=== PATIENT | female | born 1990 ===

== ENCOUNTER 2017-02-17 06:58 | Observation (INO) | payer OTHER, SELFPAY ==
[2017-02-17 07:37] VITALS: BMI 27.4
[2017-02-17 07:41] VITALS: RESP 20; O2SAT 98
[2017-02-17] MEDS ORDERED: Iohexol 240 (50 ml) PO ONE (08:06)
[2017-02-17] MEDS ORDERED: Sodium Chloride 0.9% 1,000 ML IV STA (08:07)
--- NOTE | 2017-02-17 08:09 | ED PDOC ---
HPI: Abdomen Time Seen by Provider: 02/17/17 07:00 Chief Complaint (Nursing): Abdominal Pain Chief Complaint (Provider): Abdominal Pain History Per: Patient History/Exam Limitations: no limitations Onset/Duration Of Symptoms: Days Current Symptoms Are (Timing): Still Present Severity: Moderate Location Of Pain/Discomfort: Periumbilical Quality Of Discomfort: "Pain" Associated Symptoms: Nausea, Back Pain. denies: Fever, Vomiting, Diarrhea, Urinary Symptoms Exacerbating Factors: None Alleviating Factors: None Additional Complaint(s): Patient is a 26 year old female who presents to ED for evaluation of abdominal pain and back pain that began 3 days ago. Patient states pain was initially mild , felt a little better yesterday but worsened significantly last night, making it difficult to sleep. Patient states pain is lower abdomen with nausea. Denies vomiting, diarrhea, urinary changes, fever or chills. Notes she thought she may be but had a normal menstrual cycle last week with 2 negative home test. Past Medical History Reviewed: Historical Data, Nursing Documentation, Vital Signs Vital Signs: Last Vital Signs Temp 98.7 F 02/17/17 13:32 Pulse 78 02/17/17 13:32 Resp 20 02/17/17 13:32 BP 128/70 02/17/17 13:32 Pulse Ox 98 02/17/17 13:32 - Medical History PMH: No Chronic Diseases - Surgical History Surgical History: No Surg Hx - Family History Family History: States: No Known Family Hx - Social History Current smoker - smoking cessation education provided: Yes (occasionally ) Alcohol: None Drugs: Denies - Allergies Allergies/Adverse Reactions: Allergies Allergy/AdvReac Type Severity Reaction Status Date / Time No Known Allergies Allergy Verified 02/17/17 07:36 Review of Systems ROS Statement: Except As Marked, All Systems Reviewed And Found Negative Constitutional: Negative for: Fever, Chills Gastrointestinal: Positive for: Nausea, Abdominal Pain. Negative for: Vomiting , Diarrhea Genitourinary Female: Negative for: Dysuria, Frequency, Hematuria, Vaginal Discharge, Vaginal Bleeding, Pelvic Pain Musculoskeletal: Positive for: Back Pain Skin: Negative for: Rash Neurological: Negative for: Weakness, Numbness Physical Exam - Reviewed Nursing Documentation Reviewed: Yes Vital Signs Reviewed: Yes - Physical Exam Appears: Positive for: Non-toxic, No Acute Distress Skin: Positive for: Normal Color, Warm Eye Exam: Positive for: Normal appearance Neck: Positive for: Normal, Painless ROM Cardiovascular/Chest: Positive for: Regular Rate, Rhythm. Negative for: Murmur Respiratory: Positive for: Normal Breath Sounds. Negative for: Respiratory Distress Gastrointestinal/Abdominal: Positive for: Soft, Tenderness (mild periumbilical tenderness ). Negative for: Distended, Guarding, Rebound Back: Positive for: Normal Inspection, L CVA Tenderness, R CVA Tenderness. Negative for: Vertebral Tenderness Extremity: Positive for: Normal ROM Neurologic/Psych: Positive for: Alert, Oriented - Laboratory Results Result Diagrams: 02/17/17 08:56 02/17/17 08:56 - ECG O2 Sat by Pulse Oximetry: 98 (RA) Pulse Ox Interpretation: Normal Medical Decision Making Medical Decision Making: Time: 0800 Initial impression: Abdominal pain, determine status. R/O kidney stone , ovarian pathology less likely appendicitis Initial plan: -- CT-abdomen -- CMP -- Lipase -- CBC -- NSF, Morphine -- Urine culture -- U/A -- ED obs Time: 1230 CT results reviewed PROCEDURE: CT Abdomen and Pelvis with contrast HISTORY: Abdominal pain. COMPARISON: 03/09/2012 CT abdomen and pelvis TECHNIQUE: Contrast dose: 95 cc Omnipaque 300 Radiation dose: Total exam DLP = 934.82 no mGy-cm. This CT exam was performed using one or more of the following dose reduction techniques: Automated exposure control, adjustment of the mA and/or kV according to patient size, and/or use of iterative reconstruction technique. FINDINGS: LOWER THORAX: Unremarkable. LIVER: Unremarkable. No gross lesion or ductal dilatation. GALLBLADDER AND BILE DUCTS: Unremarkable. PANCREAS: Unremarkable. No gross lesion or ductal dilatation. SPLEEN: Unremarkable. ADRENALS: Unremarkable. No mass. KIDNEYS AND URETERS: Unremarkable. No hydronephrosis. No solid mass. VASCULATURE: Unremarkable. No aortic aneurysm. BOWEL: Unremarkable. No obstruction. No gross mural thickening. APPENDIX: Normal appendix. PERITONEUM: Unremarkable. No free fluid. No free air. LYMPH NODES: Unremarkable. No enlarged lymph nodes. BLADDER: Unremarkable. REPRODUCTIVE: Contrast-enhanced characteristics right adnexa likely reflect recent ruptured ovarian cyst. Adjacent free fluid noted in the cul-de-sac. Probable left adnexal cysts/ follicles physiologic. BONES: No acute fracture. OTHER FINDINGS: None. IMPRESSION: Findings in the pelvis consistent with recent ruptured right ovarian cyst. Associated free fluid in the cul-de-sac. Otherwise no acute/significant findings. Time: 1300 Patient on re-evaluation is feeling better. pt aware of CT results and pain completely resolved. Discussed results with patient, instructed follow up with SIMULATION EDUCATOR as outpatient Scribe Attestation: Documented by Hillary Jj acting as a scribe for Rafael Martinez MD MD Scribe Attestation: All medical record entries made by the Scribe were at my direction and personally dictated by me. I have reviewed the chart and agree that the record accurately reflects my personal performance of the history, physical exam, medical decision making, and the department course for this patient. I have also personally directed, reviewed, and agree with the discharge instructions and disposition. ED OBSERVATION Date of observation admission: 02/17/17 Time of observation admission: 08:05 - Observation admission statement Patient is being placed in observation because:: Pending CT and labs Disposition - Clinical Impression Clinical Impression: Abdominal pain, Ruptured ovarian cyst - Patient ED Disposition Is Patient to be Admitted: No Counseled Patient/Family Regarding: Studies Performed, Diagnosis, Need For Followup - Disposition Disposition: Routine/Home Disposition Time: 13:00 Condition: GOOD
[2017-02-17] MEDS ORDERED: Iohexol 240 (50 ml) ONE (08:16)
[2017-02-17 09:03] LABS: BASO % 0.3 % (0.0-2.0); EOS # 0.1 K/uL (0.0-0.7); EOS % 0.8 % (0.0-4.0); HEMATOCRIT 38.7 % (34.0-47.0); MEAN CELL VOLUME 88.8 fl (81.0-99.0); MEAN CORPUSCULAR HGB CONC 33.7 g/dL (33.0-37.0); MEAN PLATELET VOLUME 7.8 fl (7.2-11.7); MONO # 0.6 K/uL (0.0-0.8); MONO % 5.5 % (0.0-10.0); NEUT # 7.8 K/uL (1.8-7.0); NEUT % 74.4 % (50.0-75.0); NRBC % 0.1 % (0.0-0.0); RED CELL DISTRIBUTION WIDTH 13.2 % (11.5-14.5); WHITE BLOOD COUNT 10.5 K/uL (4.8-10.8)
[2017-02-17 09:19] LABS: ALB/GLOB RATIO 1.2 (1.0-2.1); ALKALINE PHOSPHATASE 83 U/L (38-126); ALT/SGPT 35 U/L (9-52); AST/SGOT 22 U/L (14-36); BILIRUBIN,TOTAL 0.4 mg/dl (0.2-1.3); BLOOD UREA NITROGEN 14 mg/dl (7-17); CALCIUM 9.4 mg/dL (8.4-10.2); CARBON DIOXIDE 23 mmol/L (22-30); CHLORIDE 105 mmol/L (98-107); GFR AFRICAN-AMERICAN > 60; GLUCOSE,RANDOM 98 mg/dL (65-105); LIPASE 23 U/L (23-300); SODIUM 142 mmol/l (132-148); TOTAL PROTEIN 7.6 G/DL (6.3-8.2)
[2017-02-17 09:23] LABS: RBC URINE 1 /hpf (0-3); URINE BACTERIA RARE (<OCC); URINE BILIRUBIN NEGATIVE (NEGATIVE); URINE BLOOD NEGATIVE (NEGATIVE); URINE COLOR YELLOW (YELLOW); URINE GLUCOSE (UA) NEG (Normal); URINE KETONE NEGATIVE (NEGATIVE); URINE LEUKOCYTE ESTERASE TRACE Leu/uL (Negative); URINE PROTEIN 30 mg/dL (NEGATIVE); URINE UROBILINOGEN 0.2-1.0 mg/dL (0.2-1.0); WBC URINE 4 /hpf (0-5)
[2017-02-17] MEDS ORDERED: Iohexol 300 100 ML IJ ONE (11:31)
[2017-02-17] MEDS ORDERED: Sodium Chloride 0.9% 50 ML IV ONE (11:31)
--- NOTE | 2017-02-17 12:27 | CT ---
PROCEDURE: CT Abdomen and Pelvis with contrast HISTORY: Abdominal pain. COMPARISON: 03/09/2012 CT abdomen and pelvis TECHNIQUE: Contrast dose: 95 cc Omnipaque 300 Radiation dose: Total exam DLP = 934.82 no mGy-cm. This CT exam was performed using one or more of the following dose reduction techniques: Automated exposure control, adjustment of the mA and/or kV according to patient size, and/or use of iterative reconstruction technique. FINDINGS: LOWER THORAX: Unremarkable. LIVER: Unremarkable. No gross lesion or ductal dilatation. GALLBLADDER AND BILE DUCTS: Unremarkable. PANCREAS: Unremarkable. No gross lesion or ductal dilatation. SPLEEN: Unremarkable. ADRENALS: Unremarkable. No mass. KIDNEYS AND URETERS: Unremarkable. No hydronephrosis. No solid mass. VASCULATURE: Unremarkable. No aortic aneurysm. BOWEL: Unremarkable. No obstruction. No gross mural thickening. APPENDIX: Normal appendix. PERITONEUM: Unremarkable. No free fluid. No free air. LYMPH NODES: Unremarkable. No enlarged lymph nodes. BLADDER: Unremarkable. REPRODUCTIVE: Contrast-enhanced characteristics right adnexa likely reflect recent ruptured ovarian cyst. Adjacent free fluid noted in the cul-de-sac. Probable left adnexal cysts/ follicles physiologic. BONES: No acute fracture. OTHER FINDINGS: None. IMPRESSION: Findings in the pelvis consistent with recent ruptured right ovarian cyst. Associated free fluid in the cul-de-sac. Otherwise no acute/significant findings.
[2017-02-17 13:33] VITALS: BP 128/70; PULSE 78; TEMP 98.7
== END 2017-02-17 13:06 | disposition home or self-care (01) ==
LOC: H.ER 06:58 → H.EROBSV 08:06
PROVIDERS: ADMIT Emergency Medicine; ATTEND Emergency Medicine
DX: N83.201 Unspecified ovarian cyst, right side (principal); F17.200 Nicotine dependence, unspecified, uncomplicated

== ENCOUNTER 2017-08-11 07:21 | Emergency (ER) | payer OTHER ==
[2017-08-11 07:22] VITALS: BMI 27.4
[2017-08-11 07:28] VITALS: O2SAT 98
[2017-08-11 07:37] VITALS: RESP 20
[2017-08-11] MEDS ORDERED: Sodium Chloride 0.9% 1,000 ML IV STA (08:02)
--- NOTE | 2017-08-11 08:07 | ED PDOC ---
HPI: Headache Time Seen by Provider: 08/11/17 07:43 Chief Complaint (Nursing): Abdominal Pain Chief Complaint (Provider): headache History Per: Patient History/Exam Limitations: no limitations Onset/Duration Of Symptoms: Days (x 7) Additional Complaint(s): Lisa Sandoval is a 27 year old female, with a previous medical history of a ruptured ovarian cyst, who presents to the ED with complaints of a left sided headache ongoing for 1 week associated with nausea, dizziness and mild epigastric pain. She denies any vomiting, photophobia, fever or neck stiffness. She reports seeing her doctor for the abdominal pain who prescribed a pill twice a day before breakfast and dinner but denies seeing her doctor for the recurring headaches. Patient reports headache is consistent with previous headaches and is not the worst of her life rating it a 6/10. She reports taking Motrin twice last week and taking Tylenol last night with moderate relief. LMP: July 16, 2017 Past Medical History Reviewed: Historical Data, Nursing Documentation, Vital Signs Vital Signs: Last Vital Signs Temp 97.5 F L 08/11/17 07:34 Pulse 74 08/11/17 07:34 Resp 20 08/11/17 07:34 BP 105/65 08/11/17 07:34 Pulse Ox 98 08/11/17 07:34 - Medical History PMH: No Chronic Diseases - Surgical History Surgical History: No Surg Hx - Family History Family History: States: Diabetes (maternal ) - Social History Current smoker - smoking cessation education provided: No Alcohol: None Drugs: Denies - Home Medications Home Medications: Ambulatory Orders Medication Instructions Recorded Naproxen [Naprosyn] 500 mg PO BID PRN #20 tablet 08/11/17 Ondansetron [Zofran] 4 mg PO Q8H #9 tab 08/11/17 - Allergies Allergies/Adverse Reactions: Allergies Allergy/AdvReac Type Severity Reaction Status Date / Time No Known Allergies Allergy Verified 08/11/17 07:34 Review of Systems ROS Statement: Except As Marked, All Systems Reviewed And Found Negative Constitutional: Negative for: Fever Gastrointestinal: Positive for: Nausea, Abdominal Pain. Negative for: Vomiting Neurological: Positive for: Headache, Dizziness Physical Exam - Reviewed Nursing Documentation Reviewed: Yes Vital Signs Reviewed: Yes - Physical Exam Appears: Positive for: Well, Non-toxic, No Acute Distress Head Exam: Positive for: ATRAUMATIC, NORMAL INSPECTION, NORMOCEPHALIC Skin: Positive for: Normal Color, Warm, Dry Eye Exam: Positive for: Normal appearance, EOMI, PERRL. Negative for: Nystagmus ENT: Positive for: Normal ENT Inspection Neck: Positive for: Normal, Painless ROM Cardiovascular/Chest: Positive for: Regular Rate, Rhythm Respiratory: Positive for: CNT, Normal Breath Sounds Gastrointestinal/Abdominal: Positive for: Bowel Sounds, Soft, Tenderness (mild epigastric tenderness and RLQ). Negative for: Guarding, Rebound Back: Positive for: Normal Inspection Extremity: Positive for: Normal ROM Neurologic/Psych: Positive for: Alert, sales host II-XII (intact), Oriented. Negative for: Motor/Sensory Deficits - Laboratory Results Result Diagrams: 08/11/17 08:10 08/11/17 08:10 - ECG O2 Sat by Pulse Oximetry: 98 (RA) Pulse Ox Interpretation: Normal Medical Decision Making Medical Decision Making: Initial Impression: Migraine headaches Initial Plan: * labs * lipase * urine dipstick * urine * pepcid 20 mg IV * zofran 4 mg IV * urinalysis * IV NS 1,000 ml at 1,000 ml/hr * reevaluation ----- Scribe Attestation: Documented by Jenny Castro acting as a scribe for Robyn Mccarthy MD. Scribe Attestation: All medical record entries made by the Scribe were at my direction and personally dictated by me. I have reviewed the chart and agree that the record accurately reflects my personal performance of the history, physical exam, medical decision making, and the department course for this patient. I have also personally directed, reviewed, and agree with the discharge instructions and disposition. Disposition - Clinical Impression Clinical Impression: Migraine - Patient ED Disposition Is Patient to be Admitted: No Doctor Will See Patient In The: Office Counseled Patient/Family Regarding: Diagnosis, Need For Followup, Rx Given - Disposition Disposition: Routine/Home Disposition Time: 10:44 Condition: IMPROVED Prescriptions: Naproxen [Naprosyn] 500 mg PO BID PRN #20 tablet PRN Reason: Pain, Moderate (4-7) Ondansetron [Zofran] 4 mg PO Q8H #9 tab Forms: [email or web address] (Lao) - POA Present On Arrival: None
[2017-08-11 08:20] LABS: BASO % 0.6 % (0.0-2.0); EOS # 0.2 K/uL (0.0-0.7); EOS % 2.7 % (0.0-4.0); HEMATOCRIT 36.4 % (34.0-47.0); LYMPH # 2.6 K/uL (1.0-4.3); LYMPH % 34.8 % (20.0-40.0); MEAN CELL VOLUME 89.7 fl (81.0-99.0); MEAN CORPUSCULAR HEMOGLOBIN 30.3 pg (27.0-31.0); MEAN CORPUSCULAR HGB CONC 33.8 g/dL (33.0-37.0); MEAN PLATELET VOLUME 7.8 fl (7.2-11.7); MONO # 0.6 K/uL (0.0-0.8); MONO % 8.2 % (0.0-10.0); NEUT % 53.7 % (50.0-75.0); RED CELL DISTRIBUTION WIDTH 13.2 % (11.5-14.5); WHITE BLOOD COUNT 7.5 K/uL (4.8-10.8)
[2017-08-11 08:31] LABS: RBC URINE 1 /hpf (0-3); URINE BACTERIA RARE (<OCC); URINE BILIRUBIN NEGATIVE (NEGATIVE); URINE BLOOD NEGATIVE (NEGATIVE); URINE COLOR YELLOW (YELLOW); URINE GLUCOSE (UA) NEG (Normal); URINE KETONE NEGATIVE (NEGATIVE); URINE LEUKOCYTE ESTERASE SMALL Leu/uL (Negative); URINE PROTEIN NEGATIVE (NEGATIVE); URINE UROBILINOGEN 0.2-1.0 mg/dL (0.2-1.0); WBC URINE 13 /hpf (0-5)
[2017-08-11 08:51] LABS: ALB/GLOB RATIO 1.3 (1.0-2.1); ALKALINE PHOSPHATASE 71 U/L (38-126); ALT/SGPT 28 U/L (9-52); AST/SGOT 20 U/L (14-36); BILIRUBIN,TOTAL 0.4 mg/dl (0.2-1.3); BLOOD UREA NITROGEN 13 mg/dl (7-17); CALCIUM 9.1 mg/dL (8.4-10.2); CARBON DIOXIDE 23 mmol/L (22-30); CHLORIDE 106 mmol/L (98-107); GFR AFRICAN-AMERICAN > 60; GLUCOSE,RANDOM 96 mg/dL (65-105); LIPASE 38 U/L (23-300); POTASSIUM 4.2 MMOL/L (3.6-5.0); SODIUM 142 mmol/l (132-148); TOTAL PROTEIN 7.1 G/DL (6.3-8.2)
[2017-08-11 10:57] VITALS: BP 120/70; PULSE 72; TEMP 98
== END 2017-08-11 10:58 | disposition home or self-care (01) ==
LOC: H.ER 07:21
DX: G43.909 Migraine, unspecified, not intractable, without status migrainosus (principal); R42 Dizziness and giddiness
CPT/HCPCS: 80053; 81003; 81025; 83690; 85025; 96361; 96374; 96375; 99284; J2405; J7040

== ENCOUNTER 2018-02-16 18:02 | Emergency (ER) | payer OTHER ==
[2018-02-16 18:02] VITALS: BMI 27.4
[2018-02-16 18:10] VITALS: RESP 16
[2018-02-16] MEDS ORDERED: Sodium Chloride 0.9% 1,000 ML IV STA (18:59)
--- NOTE | 2018-02-16 18:59 | ED PDOC ---
HPI: Chest Pain Time Seen by Provider: 02/16/18 18:27 Chief Complaint (Nursing): Chest Pain Chief Complaint (Provider): breast pain, chest pain History Per: Patient Additional Complaint(s): 27 year old female presents to emergency department with right breast pain and right-sided chest pain 2 days. Patient states the pain radiates to her right shoulder. She has not taken any medicine for pain relief. Patient states in 2012 she had a lump removed from right breast and was told that an additional lump was in her right breast that also needed to be removed. Patient never had the second lump removed. She is not sure if her current pain is related to the retained right breast mass. Patient denies any fever or chills, no shortness of breath or dyspnea on exertion. She states current pain as a 7 out of 10. PMD: none Past Medical History Reviewed: Historical Data, Nursing Documentation, Vital Signs Vital Signs: Last Vital Signs Temp 98.6 F 02/16/18 18:07 Pulse 86 02/16/18 18:47 Resp 16 02/16/18 18:07 BP 123/71 02/16/18 18:07 Pulse Ox 99 02/16/18 19:21 - Medical History PMH: No Chronic Diseases - Surgical History Other surgeries: right breast lump removal - Family History Family History: States: Diabetes - Living Arrangements Living Arrangements: With Family - Social History Current smoker - smoking cessation education provided: No Alcohol: None Drugs: Denies - Home Medications Home Medications: Ambulatory Orders Medication Instructions Recorded Naproxen [Naprosyn] 500 mg PO BID PRN #20 tablet 08/11/17 Ondansetron [Zofran] 4 mg PO Q8H #9 tab 08/11/17 - Allergies Allergies/Adverse Reactions: Allergies Allergy/AdvReac Type Severity Reaction Status Date / Time No Known Allergies Allergy Verified 08/11/17 07:34 RIKKI Risk Score for UA/NSTEMI - RIKKI Risk Score Age > 64: NO 3 or more CAD Risk Factors: NO Known CAD (Stenosis greater than 50%): NO Aspirin use in past 7 days: NO Severe Angina: NO EKG ST changes greater than 0.5mm: NO Positive Cardiac Marker: NO RIKKI Score: 0 Risk %: 5% Curb-65 Severity Score - CURB-65 Severity Score Confusion: No Bun >19mg/dl (>7mmol/L): No Respiratory Rate greater than/equal to 30: No Systolic BP <90 or Diastolic BP less than/equal 60mmHg: No Age >64: No Curb-65 Score: 0 Percentage 30-day mortality: 0.6% Wells Criteria for PE - Wells Criteria for Pulmonary Embolism Clinical Signs and Symptoms of DVT: No P.E is #1 Diagnosis, or Equally Likely: No Heart Rate >100: No Immobilization at least 3 days;Surgery previous 4 weeks: No Previous, objectively diagnosed PE or DVT: No Hemoptysis: No Malignancy w/treatment within 6 months, or palliative: No Total Score: 0 Review of Systems ROS Statement: Except As Marked, All Systems Reviewed And Found Negative Constitutional: Negative for: Fever Cardiovascular: Positive for: Chest Pain (right sided, right breast pain). Negative for: Palpitations Respiratory: Negative for: Cough, Shortness of Breath, Hemoptysis, SOB with Exertion, Pleuritic Pain, Sputum, Wheezing Gastrointestinal: Negative for: Nausea, Vomiting, Abdominal Pain Genitourinary Female: Negative for: Dysuria Neurological: Negative for: Headache, Dizziness Physical Exam - Reviewed Nursing Documentation Reviewed: Yes Vital Signs Reviewed: Yes - Physical Exam Appears: Positive for: Well, Non-toxic, No Acute Distress Head Exam: Negative for: ATRAUMATIC, NORMAL INSPECTION Skin: Positive for: Rash Eye Exam: Positive for: Normal appearance Neck: Positive for: Normal Cardiovascular/Chest: Negative for: Chest Non Tender (Tenderness to right anterior chest wall, mild tenderness diffusely noted to right breast with no palpable masses, no skin dimpling, no erythema or swelling, left breast wnl) Respiratory: Positive for: Normal Breath Sounds. Negative for: Wheezing, Respiratory Distress Gastrointestinal/Abdominal: Positive for: Soft. Negative for: Tenderness, Distended, Guarding, Rebound Back: Negative for: L CVA Tenderness, R CVA Tenderness Extremity: Positive for: Normal ROM Neurologic/Psych: Positive for: Alert, Oriented - Laboratory Results Result Diagrams: 02/16/18 19:26 02/16/18 19:26 Urine POC: Negative Urine dip results: Negative for: Leukocyte Esterase, Blood, Nitrate, Ketones, Glucose, Bilirubin, Protein - ECG Interpretation Of ECG: Normal sinus rhythm 81 bpm, no acute changes, reviewed by PA and ED attending. O2 Sat by Pulse Oximetry: 99 Pulse Ox Interpretation: Normal Medical Decision Making Medical Decision Makin27 year old with right side chest pain and right breast pain for 2 days Plan: EKG CXR CBC CMP Trop IVF IV toradol Disposition - Clinical Impression Clinical Impression: Chest pain, Breast pain - Patient ED Disposition Is Patient to be Admitted: Transfer of Care - Disposition Disposition: Transfer of Care Disposition Time: 20:00 Condition: STABLE Forms: [facility] (Macedonian) Patient Signed Over To: Adia Xiao Handoff Comments: Signed out pending diagnostic testing results and final disposition
[2018-02-16 19:38] LABS: BASO # 0.1 K/uL (0.0-0.2); EOS # 0.1 K/uL (0.0-0.7); EOS % 1.5 % (0.0-4.0); HEMOGLOBIN 12.6 g/dL (12.0-16.0); LYMPH # 2.5 K/uL (1.0-4.3); LYMPH % 30.7 % (20.0-40.0); MEAN CELL VOLUME 89.8 fl (81.0-99.0); MEAN CORPUSCULAR HEMOGLOBIN 30.2 pg (27.0-31.0); MEAN CORPUSCULAR HGB CONC 33.6 g/dL (33.0-37.0); MEAN PLATELET VOLUME 8.1 fl (7.2-11.7); MONO # 0.5 K/uL (0.0-0.8); NEUT % 60.8 % (50.0-75.0); NRBC % 0.2 % (0.0-0.0); RBC 4.17 Mil/uL (3.80-5.20); WHITE BLOOD COUNT 8.3 K/uL (4.8-10.8)
[2018-02-16 19:45] LABS: ALB/GLOB RATIO 1.2 (1.0-2.1); ALBUMIN 4.2 g/dL (3.5-5.0); ALT/SGPT 31 U/L (9-52); AST/SGOT 24 U/L (14-36); BLOOD UREA NITROGEN 15 mg/dl (7-17); CALCIUM 9.2 mg/dL (8.4-10.2); GFR AFRICAN-AMERICAN > 60; GFR NON-AFRICAN AMERICAN > 60
--- NOTE | 2018-02-16 20:10 | ED PDOC ---
- Laboratory Results Result Diagrams: 02/16/18 19:26 02/16/18 19:26 Urine POC: Negative - ECG O2 Sat by Pulse Oximetry: 99 - Radiology X-Ray: Viewed By Me X-Ray Interpretation: No Acute Disease - Progress ED Course And Treament: Case endorsed to caption writer from [facility] pending labs, xray Patient educated on findings, discharged with instructions to follow up PMD 2-3 days. Advised Tylenol/ibuprofen PRN pain. Return precautions given. Disposition - Clinical Impression Clinical Impression: Breast pain, Atypical chest pain - POA Present On Arrival: None - Disposition Referrals: [facility] [Outside] Disposition: Routine/Home Disposition Time: 20:19 Condition: STABLE Instructions: Chest Pain That Is Not Caused by the Heart (DC), Common Breast Problems Forms: [facility] (Anguillan)
[2018-02-16 20:41] VITALS: BP 120/68; PULSE 76; TEMP 98.4; O2SAT 100
--- NOTE | 2018-02-17 09:18 | RAD ---
HISTORY: Pain. COMPARISON: No prior. FINDINGS: LUNGS: No active pulmonary disease. PLEURA: No significant pleural effusion identified, no pneumothorax apparent. CARDIOVASCULAR: Normal. OSSEOUS STRUCTURES: No significant abnormalities. VISUALIZED UPPER ABDOMEN: Normal. OTHER FINDINGS: None. IMPRESSION: No active disease.
--- NOTE | 2018-02-18 18:21 | CARD ---
APPROVED REPORT EKG Measurement Heart [id number] <Conclusion> Normal sinus rhythm Normal ECG
== END 2018-02-16 20:54 | disposition home or self-care (01) ==
LOC: H.ER 18:02
DX: N64.4 Mastodynia (principal)
CPT/HCPCS: 71045; 80053; 81025; 84484; 85025; 93005; 96374; 99283; J1885; J7040

== ENCOUNTER 2018-05-12 19:23 | Emergency (ER) | payer OTHER ==
[2018-05-12 19:23] VITALS: BMI 27.4
--- NOTE | 2018-05-12 20:54 | ED PDOC ---
HPI: Abdomen Time Seen by Provider: 05/12/18 19:51 Chief Complaint (Nursing): Abdominal Pain Chief Complaint (Provider): Abdominal Pain History Per: Patient History/Exam Limitations: no limitations Onset/Duration Of Symptoms: Hrs Current Symptoms Are (Timing): Still Present Location Of Pain/Discomfort: RUQ, RLQ Associated Symptoms: Nausea (mild), Back Pain. denies: Vomiting, Diarrhea Additional Complaint(s): 28 year old with presents to the ED complaining of sudden onset of right sided abdominal pain associated with mild nausea since this morning. Patient reports pain is sharp and radiates around to the right flank/back. Patient has no prior history of similar pain. Patient states she has had ovarian cysts rupture but states this pain feels somewhat different. Denies vomiting, diarrhea, and fever. PMD: None Provided. Past Medical History Reviewed: Historical Data, Nursing Documentation, Vital Signs Vital Signs: Last Vital Signs Temp 98.2 F 05/13/18 00:54 Pulse 85 05/13/18 00:54 Resp 18 05/13/18 00:54 BP 106/60 05/13/18 00:54 Pulse Ox 97 05/13/18 00:54 - Medical History PMH: No Chronic Diseases - Surgical History Other surgeries: Breast Cyst Removal - Family History Family History: States: Diabetes - Home Medications Home Medications: Ambulatory Orders Medication Instructions Recorded Naproxen [Naprosyn] 500 mg PO BID PRN #20 tablet 08/11/17 Ondansetron [Zofran] 4 mg PO Q8H #9 tab 08/11/17 Ondansetron ODT [Zofran ODT] 4 mg PO Q8 PRN #10 odt 02/16/18 Naproxen [Naprosyn] 500 mg PO BID PRN #14 tablet 05/13/18 - Allergies Allergies/Adverse Reactions: Allergies Allergy/AdvReac Type Severity Reaction Status Date / Time No Known Allergies Allergy Verified 08/11/17 07:34 Review of Systems ROS Statement: Except As Marked, All Systems Reviewed And Found Negative Constitutional: Negative for: Fever Gastrointestinal: Positive for: Nausea, Abdominal Pain. Negative for: Vomiting , Diarrhea Genitourinary Female: Negative for: Dysuria, Frequency, Hematuria, Vaginal Discharge, Vaginal Bleeding Musculoskeletal: Positive for: Back Pain Physical Exam - Reviewed Nursing Documentation Reviewed: Yes Vital Signs Reviewed: Yes - Physical Exam Appears: Positive for: No Acute Distress Head Exam: Positive for: ATRAUMATIC, NORMOCEPHALIC Skin: Positive for: Normal Color, Warm, Dry Eye Exam: Positive for: Normal appearance, EOMI, PERRL Neck: Positive for: Normal Cardiovascular/Chest: Positive for: Regular Rate, Rhythm Respiratory: Positive for: Normal Breath Sounds. Negative for: Respiratory Distress Gastrointestinal/Abdominal: Positive for: Normal Exam, Tenderness (right upper quadrant tenderness and mild right lower quadrant tenderness) Extremity: Positive for: Normal ROM Neurologic/Psych: Positive for: Alert, Oriented - Laboratory Results Result Diagrams: 05/12/18 20:47 05/12/18 20:47 - ECG O2 Sat by Pulse Oximetry: 100 (RA) Pulse Ox Interpretation: Normal Medical Decision Making Medical Decision Making: Time: 1950 Impression:Rule out unlikely appendicitis More likely renal umbilical colic Plan: -- Blood work -- Imaging with CT Time: 2238 CT ABD/PELVIS RESULTS FINDINGS: Lung bases: Heart size is normal. There is minimal atelectasis and scarring at the lung bases ABDOMEN: Liver: There is fatty infiltration of the liver. There are very small low attenuation hepatic lesions too small to accurately characterize. Largest 4 mm Gallbladder and bile ducts: unremarkable Pancreas: unremarkable Spleen: unremarkable Adrenals: unremarkable Kidneys and ureters: unremarkable Stomach and bowel: Stomach is partially distended. Rotation is normal. There is fluid and air throughout the small bowel. There is no obstruction. Ileocecal region is unremarkable.Appendix and terminal ileum are unremarkable. There is scattered diverticulosis PELVIS: Appendix: See stomach and bowel Bladder: unremarkable Reproductive: Uterus and left adnexa are unremarkable. There is prominence of the right adnexa with a corpus luteum. ABDOMEN and PELVIS: Intraperitoneal space: There is a small amount of free fluid in the pelvis. There is no free air. Bones/joints: There are no acute osseous abnormalities. Soft tissues: There is a very small fat containing umbilical hernia. Vasculature: Vascular structures are unremarkable. Lymph nodes: There is no pathologic adenopathy. IMPRESSION: No acute solid visceral or bowel abnormality, no appendicitis or diverticulitis; small amount of free fluid in the pelvis, physiologic versus recent cyst rupture; right corpus luteum Additional nonemergent findings as described above. Thank you for allowing us to participate in the care of your patient. Dictated and Authenticated by: KorNina Richard MD 05/12/2018 10:39 PM Eastern Time ([place] & [place]) Time: 2243 -- Gallbladder & Common Duct US -- Pelvis/Transvag US Time: 2250 -- Patient reports feeling better but given symptoms, we will obtain an ultrasound of the gallbladder and re-evaluate. Time: 2344 Transvaginal US FINDINGS: Uterus/cervix: Uterus measures approximately 6.5 x 3.1 x 4 cm. endometrium measures approximate 7 mm in width. Right ovary: Right ovary measures proximately 4 x 1.8 x 2.7 cm. There are multiple small follicles. There is intraovarian blood flow. There is a corpus luteum the right ovary. Left ovary: Left ovary measures approximately 2.7 x 1.6 x 2.2 cm.There is expected blood flow on Doppler imaging Free fluid: There is trace fluid in the cul-de-sac. There is trace fluid in the right adnexal region Bladder: Not evaluated IMPRESSION: Trace fluid in the cul-de-sac and right adnexa, most likely physiologic; no torsion Dictated and Authenticated by: Nina Concepcion MD 05/12/2018 11:45 PM Eastern Time ([place] & [place]) Time: 2345 US Gallbladder FINDINGS: Liver: Liver is unremarkable. There is hepatopedal flow in the main portal vein. Gallbladder: Gallbladder is distended with no stones, sludge or wall thickening. Common bile duct: Common bile duct measures approximately 3 mm in diameter. Pancreas: Pancreas is partially obscured by bowel gas. Visualized portion is unremarkable Right kidney: Right kidney is unremarkable. Aorta: Visualized portions of the aorta and inferior vena cava are unremarkable. IMPRESSION: No gallstones or ductal dilatation Patient was not tender over the gallbladder Dictated and Authenticated by: Nina Concepcion MD 05/12/2018 11:46 PM Eastern Time ([place] & [place]) improved on re-eval without RLQ tenderness or c/o pain. Rec followup [employer] and indications for return to ER discussed. Scribe Attestation: Documented by Eduardo Newman, acting as a scribe for Dr. Darshan Blackwell III, . Provider Scribe Attestation: All medical record entries made by the Scribe were at my direction and personally dictated by me. I have reviewed the chart and agree that the record accurately reflects my personal performance of the history, physical exam, medical decision making, and the department course for this patient. I have also personally directed, reviewed, and agree with the discharge instructions and disposition. Disposition - Clinical Impression Clinical Impression: Abdominal pain - Patient ED Disposition Is Patient to be Admitted: No Counseled Patient/Family Regarding: Studies Performed, Diagnosis, Need For Followup, Rx Given - Disposition Referrals: [facility] [Outside] Disposition: Routine/Home Disposition Time: 23:00 Condition: STABLE Additional Instructions: Return to ER for any new or worsening symptoms, pain, fever or any concern. ADELE KRISHNAN, thank you for letting us take care of you today. Your provider was Dr Darshan Blackwell and you were treated for Abdominal pain The emergency medical care you received today was directed at your acute symptoms. If you were prescribed any medication, please fill it and take as directed. It may take several days for your symptoms to resolve. Return to the Emergency Department if your symptoms worsen, do not improve, or if you have any other problems. Please contact your doctor or call one of the physicians/clinics you have been referred to that are listed on the Patient Visit Information form that is included in your discharge packet. Bring any paperwork you were given at discharge with you along with any medications you are taking to your follow up visit. Our treatment cannot replace ongoing medical care by a primary care provider outside of the emergency department. Thank you for allowing the [facility] team to be part of your care today. If you had an X-Ray or CT scan: A Radiologist will review the ED reading if any change in treatment is needed we will contact you. If you had a blood, urine, or wound culture: It will take several days for the results, if any change in treatment is needed we will contact you. Prescriptions: Naproxen [Naprosyn] 500 mg PO BID PRN #14 tablet PRN Reason: Pain, Moderate (4-7) Instructions: Acute Abdomen (Belly Pain), Adult (DC) Forms: [employer] Connect (Persian), [facility] ED School/Work Excuse
[2018-05-12 20:56] LABS: BASO # 0.1 K/uL (0.0-0.2); BASO % 0.7 % (0.0-2.0); EOS # 0.1 K/uL (0.0-0.7); EOS % 0.8 % (0.0-4.0); HEMOGLOBIN 12.5 g/dL (12.0-16.0); LYMPH # 2.8 K/uL (1.0-4.3); LYMPH % 27.3 % (20.0-40.0); MEAN CELL VOLUME 88.7 fl (81.0-99.0); MEAN CORPUSCULAR HEMOGLOBIN 29.9 pg (27.0-31.0); MEAN CORPUSCULAR HGB CONC 33.7 g/dL (33.0-37.0); MEAN PLATELET VOLUME 7.8 fl (7.2-11.7); MONO # 0.6 K/uL (0.0-0.8); NEUT # 6.7 K/uL (1.8-7.0); NEUT % 65.2 % (50.0-75.0); RBC 4.17 Mil/uL (3.80-5.20); RED CELL DISTRIBUTION WIDTH 12.8 % (11.5-14.5); WHITE BLOOD COUNT 10.3 K/uL (4.8-10.8)
[2018-05-12 21:24] LABS: BLOOD UREA NITROGEN 9 mg/dl (7-17); GFR NON-AFRICAN AMERICAN > 60
[2018-05-12 21:25] LABS: ALBUMIN 4.7 g/dL (3.5-5.0); CALCIUM 9.8 mg/dL (8.4-10.2)
[2018-05-12 21:26] LABS: ALB/GLOB RATIO 1.4 (1.0-2.1)
[2018-05-12 21:27] LABS: ALT/SGPT 29 U/L (9-52); AST/SGOT 40 U/L (14-36); LIPASE 32 U/L (23-300)
[2018-05-12] MEDS ORDERED: Iohexol 300 100 ML IJ ONE (21:40)
[2018-05-12] MEDS ORDERED: Sodium Chloride 0.9% 50 ML IV ONE (21:40)
--- NOTE | 2018-05-12 22:39 | CT ---
EXAM: CT Abdomen and Pelvis With Intravenous Contrast EXAM DATE/TIME: 05/12/2018 8:30 PM CLINICAL HISTORY: 28 years old, female; Pain; Abdominal pain; Flank; Right lower quadrant (rlq); Additional info: R sided abd pain TECHNIQUE: Axial computed tomography images of the abdomen and pelvis with intravenous contrast. All CT scans at this facility use at least one of these dose optimization techniques: automated exposure control; mA and/or kV adjustment per patient size (includes targeted exams where dose is matched to clinical indication); or iterative reconstruction. Coronal and sagittal reformatted images were created and reviewed. COMPARISON: There are no prior studies for comparison. FINDINGS: Lung bases: Heart size is normal. There is minimal atelectasis and scarring at the lung bases ABDOMEN: Liver: There is fatty infiltration of the liver. There are very small low attenuation hepatic lesions too small to accurately characterize. Largest 4 mm Gallbladder and bile ducts: unremarkable Pancreas: unremarkable Spleen: unremarkable Adrenals: unremarkable Kidneys and ureters: unremarkable Stomach and bowel: Stomach is partially distended. Rotation is normal. There is fluid and air throughout the small bowel. There is no obstruction. Ileocecal region is unremarkable.Appendix and terminal ileum are unremarkable. There is scattered diverticulosis PELVIS: Appendix: See stomach and bowel Bladder: unremarkable Reproductive: Uterus and left adnexa are unremarkable. There is prominence of the right adnexa with a corpus luteum. ABDOMEN and PELVIS: Intraperitoneal space: There is a small amount of free fluid in the pelvis. There is no free air. Bones/joints: There are no acute osseous abnormalities. Soft tissues: There is a very small fat containing umbilical hernia. Vasculature: Vascular structures are unremarkable. Lymph nodes: There is no pathologic adenopathy. IMPRESSION: No acute solid visceral or bowel abnormality, no appendicitis or diverticulitis; small amount of free fluid in the pelvis, physiologic versus recent cyst rupture; right corpus luteum Additional nonemergent findings as described above.
--- NOTE | 2018-05-12 23:45 | US ---
EXAM: US Pelvis, Transvaginal US Duplex Arterial/Venous of the Pelvis, Complete EXAM DATE/TIME: 05/12/2018 10:44 PM CLINICAL HISTORY: 28 years old, female; Pain; Pelvic pain; Additional info: R abd pain LMP 04/26/18 Gender: female TECHNIQUE: Real-time transvaginal pelvic ultrasound (complete) with image documentation. Transvaginal imaging was used for better evaluation of the endometrium and adnexa. Real-time duplex ultrasound scan of the arterial and venous flow of the pelvis with color Doppler flow and spectral waveform analysis. COMPARISON: There are no prior studies for comparison. FINDINGS: Uterus/cervix: Uterus measures approximately 6.5 x 3.1 x 4 cm. endometrium measures approximate 7 mm in width. Right ovary: Right ovary measures proximately 4 x 1.8 x 2.7 cm. There are multiple small follicles. There is intraovarian blood flow. There is a corpus luteum the right ovary. Left ovary: Left ovary measures approximately 2.7 x 1.6 x 2.2 cm.There is expected blood flow on Doppler imaging . Free fluid: There is trace fluid in the cul-de-sac. There is trace fluid in the right adnexal region Bladder: Not evaluated IMPRESSION: Trace fluid in the cul-de-sac and right adnexa, most likely physiologic; no torsion
--- NOTE | 2018-05-12 23:47 | US ---
EXAM: US Abdomen Limited, Right Upper Quadrant EXAM DATE/TIME: 05/12/2018 10:44 PM CLINICAL HISTORY: 28 years old, female; Pain; Abdominal pain; Epigastric; Additional info: Ruq pain TECHNIQUE: Real-time ultrasound of the right upper quadrant with image documentation. COMPARISON: There are no prior studies for comparison. FINDINGS: Liver: Liver is unremarkable. There is hepatopedal flow in the main portal vein. Gallbladder: Gallbladder is distended with no stones, sludge or wall thickening. Common bile duct: Common bile duct measures approximately 3 mm in diameter. Pancreas: Pancreas is partially obscured by bowel gas. Visualized portion is unremarkable Right kidney: Right kidney is unremarkable. Aorta: Visualized portions of the aorta and inferior vena cava are unremarkable. IMPRESSION: No gallstones or ductal dilatation Patient was not tender over the gallbladder
[2018-05-13 00:55] VITALS: BP 106/60; PULSE 85; RESP 18; TEMP 98.2
[2018-05-13 17:13] VITALS: O2SAT 100
== END 2018-05-13 01:14 | disposition home or self-care (01) ==
LOC: H.ER 19:23
DX: R10.9 Unspecified abdominal pain (principal)
CPT/HCPCS: 74177; 76705; 76830; 80053; 81025; 83690; 85025; 99283; J1885; Q9967

== ENCOUNTER 2018-05-16 13:27 | Emergency (ER) | payer OTHER ==
[2018-05-16 13:27] VITALS: BMI 27.4
[2018-05-16 13:54] VITALS: O2SAT 98
[2018-05-16 15:12] LABS: BASO # 0.1 K/uL (0.0-0.2); BASO % 1.3 % (0.0-2.0); EOS % 0.2 % (0.0-4.0); LYMPH # 0.8 K/uL (1.0-4.3); LYMPH % 8.2 % (20.0-40.0); MEAN CORPUSCULAR HEMOGLOBIN 29.9 pg (27.0-31.0); MEAN CORPUSCULAR HGB CONC 33.6 g/dL (33.0-37.0); MEAN PLATELET VOLUME 8.1 fl (7.2-11.7); MONO # 0.2 K/uL (0.0-0.8); MONO % 1.6 % (0.0-10.0); NEUT # 9.1 K/uL (1.8-7.0); NEUT % 88.7 % (50.0-75.0); NRBC % 0.1 % (0.0-0.0); PLATELET COUNT 305 K/uL (130-400); RBC 4.35 Mil/uL (3.80-5.20); RED CELL DISTRIBUTION WIDTH 12.9 % (11.5-14.5); WHITE BLOOD COUNT 10.3 K/uL (4.8-10.8)
[2018-05-16] MEDS ORDERED: Sodium Chloride 0.9% 1,000 ML IV STA (15:25)
[2018-05-16 15:34] LABS: ALB/GLOB RATIO 1.1 (1.0-2.1); ALBUMIN 4.3 g/dL (3.5-5.0); ALT/SGPT 38 U/L (9-52); AST/SGOT 26 U/L (14-36); BLOOD UREA NITROGEN 10 mg/dl (7-17); CALCIUM 9.3 mg/dL (8.4-10.2); GFR AFRICAN-AMERICAN > 60; GFR NON-AFRICAN AMERICAN > 60
[2018-05-16 16:03] LABS: BANDS 4 % (0-2); LYMPHOCYTE 6 % (20-50); MONOCYTE 3 % (0-10); NEUTROPHIL 87 % (42-75); PLATELET ESTIMATE NORMAL (NORMAL); TOTAL CELLS COUNTED 100
[2018-05-16] MEDS ORDERED: cefTRIAXone (Rocephin) 1 gm Inj ONE (16:11)
[2018-05-16 16:48] LABS: VENOUS BLOOD GAS BASE EXCESS -6.6 mmol/L (0.0-2.0); VENOUS BLOOD GAS PCO2 28 mmHg (40-60); VENOUS BLOOD GAS PO2 25 mm/Hg (30-55); VENOUS BLOOD PH 7.39 (7.32-7.43)
--- NOTE | 2018-05-16 17:27 | ED PDOC ---
HPI: Abdomen Time Seen by Provider: 05/16/18 14:14 Chief Complaint (Nursing): Abdominal Pain Chief Complaint (Provider): Abdominal pain, back pain History Per: Patient History/Exam Limitations: no limitations Onset/Duration Of Symptoms: Days Outside of [place] travel?: No Additional Complaint(s): 28 yo female presents with back pain and lower abdominal pain, bilateral for 4 days. Pt states she was also feeling feverish today. PT states she was seen in ER 3 days ago and given motrin for pain. Pt states she continues to feel pain and states she is taking naproxen which helps however today she developed a fever. Pt states she did not take temperature at home. PT states she also did not take pain medication today. Past Medical History Reviewed: Historical Data, Nursing Documentation, Vital Signs Vital Signs: Last Vital Signs Temp 99.7 F H 05/16/18 17:13 Pulse 111 H 05/16/18 13:51 Resp 20 05/16/18 13:51 BP 105/64 05/16/18 13:51 Pulse Ox 98 05/16/18 17:26 - Medical History PMH: No Chronic Diseases - Surgical History Surgical History: No Surg Hx - Family History Family History: States: Diabetes - Living Arrangements Living Arrangements: With Family - Social History Current smoker - smoking cessation education provided: No - Home Medications Home Medications: Ambulatory Orders Medication Instructions Recorded Naproxen [Naprosyn] 500 mg PO BID PRN #20 tablet 08/11/17 Ondansetron [Zofran] 4 mg PO Q8H #9 tab 08/11/17 Ondansetron ODT [Zofran ODT] 4 mg PO Q8 PRN #10 odt 02/16/18 Naproxen [Naprosyn] 500 mg PO BID PRN #14 tablet 05/13/18 Ciprofloxacin [Cipro] 500 mg PO BID #14 tab 05/16/18 - Allergies Allergies/Adverse Reactions: Allergies Allergy/AdvReac Type Severity Reaction Status Date / Time No Known Allergies Allergy Verified 05/16/18 13:50 Review of Systems ROS Statement: Except As Marked, All Systems Reviewed And Found Negative Constitutional: Positive for: Fever, Malaise Gastrointestinal: Positive for: Nausea, Abdominal Pain. Negative for: Diarrhea Genitourinary Female: Negative for: Dysuria Musculoskeletal: Positive for: Back Pain Physical Exam - Reviewed Nursing Documentation Reviewed: Yes Vital Signs Reviewed: Yes - Physical Exam Appears: Positive for: Well, Non-toxic, No Acute Distress Head Exam: Positive for: ATRAUMATIC, NORMAL INSPECTION, NORMOCEPHALIC Skin: Positive for: Normal Color, Warm, DRY Eye Exam: Positive for: Normal appearance ENT: Positive for: Normal ENT Inspection Neck: Positive for: Normal, Painless ROM Cardiovascular/Chest: Positive for: Regular Rate, Rhythm Respiratory: Positive for: CNT, Normal Breath Sounds Gastrointestinal/Abdominal: Positive for: Normal Exam, Soft Back: Positive for: Normal Inspection, L CVA Tenderness. Negative for: Muscle Spasm Extremity: Positive for: Normal ROM Neurologic/Psych: Positive for: Alert, Oriented - Laboratory Results Result Diagrams: 05/16/18 15:08 05/16/18 15:08 Urine POC: Negative Urine dip results: Positive for: Leukocyte Esterase, Nitrate - ECG O2 Sat by Pulse Oximetry: 98 Pulse Ox Interpretation: Normal Medical Decision Making Medical Decision Making: DDimer entered in error. Ordered cancelled however it was still released by lab. PT without SOB, no pleuritic pain. PT is not tahcycardic on re-evaluation. 1800 - Pt reports feeling much better and would like to go home. IV antibiotics completed. Pt ambulates to the restroom. Disposition - Clinical Impression Clinical Impression: Pyelonephritis - Patient ED Disposition Is Patient to be Admitted: No Counseled Patient/Family Regarding: Diagnosis, Need For Followup, Rx Given - Disposition Referrals: Jody Ortega MD [Medical Doctor] - Disposition: Routine/Home Disposition Time: 18:01 Condition: STABLE Prescriptions: Ciprofloxacin [Cipro] 500 mg PO BID #14 tab Instructions: Urinary Tract Infections in Adults Forms: [facility] [employer] (Argentine)
[2018-05-16 18:01] VITALS: RESP 16
[2018-05-16 18:49] VITALS: BP 105/60; PULSE 75; TEMP 98.5
== END 2018-05-16 18:51 | disposition home or self-care (01) ==
LOC: H.ER 13:27
DX: N12 Tubulo-interstitial nephritis, not specified as acute or chronic (principal)
CPT/HCPCS: 80053; 82803; 85025; 85378; 87040; 96374; 99283; J0696; J1885; J7030

== ENCOUNTER 2018-10-18 15:52 | Emergency (ER) | payer OTHER ==
[2018-10-18 15:52] VITALS: BMI 27.4
[2018-10-18 16:31] VITALS: BP 128/80; PULSE 78; RESP 18; TEMP 98.7; O2SAT 99
--- NOTE | 2018-10-18 19:48 | ED PDOC ---
Lower Extremity Pain/Injury Time Seen by Provider: 10/18/18 16:35 Chief Complaint (Nursing): Lower Extremity Problem/Injury Chief Complaint (Provider): Lower Extremity Problem/Injury History Per: Patient History/Exam Limitations: no limitations Additional Complaint(s): Lisa Stern is a 28 year old female with no past medical history, who presents to the emergency department after twisting her ankle on last step of her stairs. Patient states she did not fall and has been ambulating since with mild pain to the ankle that radiates up to her leg as well. PMD: No provider Past Medical History Reviewed: Historical Data, Nursing Documentation, Vital Signs Vital Signs: Last Vital Signs Temp 98.7 F 10/18/18 16:28 Pulse 78 10/18/18 16:28 Resp 18 10/18/18 16:28 BP 128/80 10/18/18 16:28 Pulse Ox 99 10/18/18 16:28 - Medical History PMH: No Chronic Diseases Denies: Chronic Kidney Disease - Surgical History Surgical History: No Surg Hx - Family History Family History: States: Diabetes - Home Medications Home Medications: Ambulatory Orders Medication Instructions Recorded Ondansetron [Zofran] 4 mg PO Q8H #9 tab 08/11/17 RX: Naproxen [Naprosyn] 500 mg PO BID PRN #20 tablet 08/11/17 Ondansetron ODT [Zofran ODT] 4 mg PO Q8 PRN #10 odt 02/16/18 Naproxen [Naprosyn] 500 mg PO BID PRN #14 tablet 05/13/18 Ciprofloxacin [Cipro] 500 mg PO BID #14 tab 05/16/18 RX: Ibuprofen [Motrin Tab] 600 mg PO TID #15 tab 10/18/18 - Allergies Allergies/Adverse Reactions: Allergies Allergy/AdvReac Type Severity Reaction Status Date / Time No Known Allergies Allergy Verified 10/18/18 16:27 Review of Systems ROS Statement: Except As Marked, All Systems Reviewed And Found Negative Musculoskeletal: Positive for: Other (ankle pain ) Physical Exam - Reviewed Nursing Documentation Reviewed: Yes Vital Signs Reviewed: Yes - Physical Exam Appears: Positive for: Well, No Acute Distress Head Exam: Positive for: ATRAUMATIC, NORMAL INSPECTION, NORMOCEPHALIC Skin: Positive for: Normal Color Eye Exam: Positive for: Normal appearance Cardiovascular/Chest: Positive for: Regular Rate, Rhythm. Negative for: Murmur Respiratory: Positive for: Normal Breath Sounds. Negative for: Respiratory Distress Extremity: Positive for: Normal ROM, Tenderness (Mild tenderness on lateral malleolus ) Neurologic/Psych: Positive for: Alert, Oriented - ECG O2 Sat by Pulse Oximetry: 99 (RA) Pulse Ox Interpretation: Normal Medical Decision Making Medical Decision Making: Time: 17:08 Plan: --Urine --Motrin 600 mg PO --Left ankle and tibia/fibula x-ray X-rays: no fx. Ankle immobilized with marilyn wrap. Pt. ambulatory with steady gait. Scribe Attestation: Documented by Roel Ghohs, acting as a scribe for Kasey Horner PA-C. Provider Scribe Attestation: All medical record entries made by the Scribe were at my direction and personally dictated by me. I have reviewed the chart and agree that the record accurately reflects my personal performance of the history, physical exam, medical decision making, and the department course for this patient. I have also personally directed, reviewed, and agree with the discharge instructions and disposition. Disposition - Clinical Impression Clinical Impression: Ankle injury - Disposition Referrals: Sandy Miles MD [Staff Provider] - Disposition Time: 19:15 Condition: STABLE Prescriptions: RX: Ibuprofen [Motrin Tab] 600 mg PO TID #15 tab Instructions: Ankle Sprain Forms: [employer] (Armenian), [facility] ED School/Work Excuse
--- NOTE | 2018-10-19 10:15 | RAD ---
Date of service: 10/18/2018 PROCEDURE: Left Ankle Radiographs. HISTORY: trauma COMPARISON: None available. FINDINGS: BONES: No fracture appreciated. Os peroneum noted Possible talar bone island JOINTS: Normal. No osteoarthritis. Ankle mortise maintained. Talar dome intact SOFT TISSUES: Lateral ankle swelling OTHER FINDINGS: None. IMPRESSION: No fracture or dislocation is suggested. Mild soft tissue swelling in the area of interest is noted.
--- NOTE | 2018-10-19 10:17 | RAD ---
Date of service: 10/18/2018 PROCEDURE: Radiographs of the left tibia and fibula. HISTORY: trauma COMPARISON: None available. TECHNIQUE: Frontal and lateral views obtained. FINDINGS: BONES: No fracture or destructive lesion. Although the images are not true lateral in projection-the well corticated ossification bordering the lateral femoral condyle may be a fabella JOINT SPACES: Unremarkable. OTHER FINDINGS: None. IMPRESSION: No fracture or dislocation appreciated.
== END 2018-10-18 19:15 | disposition home or self-care (01) ==
LOC: H.ER 15:52
DX: S99.912A Unspecified injury of left ankle, initial encounter (principal); X50.9XXA Other and unspecified overexertion or strenuous movements or postures, initial encounter; Y93.9 Activity, unspecified

== ENCOUNTER 2018-12-21 14:25 | Emergency (ER) | payer OTHER, SELFPAY ==
[2018-12-21 14:26] VITALS: BMI 27.4
[2018-12-21 14:53] VITALS: O2SAT 99
--- NOTE | 2018-12-21 16:09 | ED PDOC ---
HPI: Abdomen Time Seen by Provider: 12/21/18 15:49 Chief Complaint (Nursing): Abdominal Pain Chief Complaint (Provider): Abdominal Pain History Per: Patient History/Exam Limitations: no limitations Onset/Duration Of Symptoms: Days (x 4) Current Symptoms Are (Timing): Still Present Location Of Pain/Discomfort: LUQ, LLQ Quality Of Discomfort: "Pain" Associated Symptoms: Back Pain. denies: Fever, Nausea, Vomiting, Diarrhea, Urinary Symptoms Additional Complaint(s): 28 year old female with a history of ruptured ovarian cyst presents to the ED with bilateral lower abdominal pain for the last 4 days. Patient reports pain was initially in right lower abdomen and has spread to her left abdomen and her back since. Pain was severe last night, prompting ED visit today. Denies dysuria, hematuria, vaginal bleeding or discharge, nausea, vomiting, diarrhea and a history of UTI and STI. PMD: none provided Abnormal Vaginal Bleeding: No Past Medical History Reviewed: Historical Data, Nursing Documentation, Vital Signs Vital Signs: Last Vital Signs Temp 98.7 F 12/21/18 14:50 Pulse 85 12/21/18 14:50 Resp 16 12/21/18 14:50 BP 118/73 12/21/18 14:50 Pulse Ox 99 12/21/18 14:50 - Medical History PMH: No Chronic Diseases Denies: Chronic Kidney Disease - Surgical History Surgical History: No Surg Hx - Family History Family History: States: Diabetes - Home Medications Home Medications: Ambulatory Orders Medication Instructions Recorded Ondansetron [Zofran] 4 mg PO Q8H #9 tab 08/11/17 RX: Naproxen [Naprosyn] 500 mg PO BID PRN #20 tablet 08/11/17 Ondansetron ODT [Zofran ODT] 4 mg PO Q8 PRN #10 odt 02/16/18 Naproxen [Naprosyn] 500 mg PO BID PRN #14 tablet 05/13/18 Ciprofloxacin [Cipro] 500 mg PO BID #14 tab 05/16/18 RX: Ibuprofen [Motrin Tab] 600 mg PO TID #15 tab 10/18/18 - Allergies Allergies/Adverse Reactions: Allergies Allergy/AdvReac Type Severity Reaction Status Date / Time No Known Allergies Allergy Verified 12/21/18 14:50 Review of Systems ROS Statement: Except As Marked, All Systems Reviewed And Found Negative Constitutional: Negative for: Fever, Chills Gastrointestinal: Positive for: Abdominal Pain (bilateral lower). Negative for: Nausea, Vomiting Genitourinary Female: Negative for: Dysuria, Frequency, Incontinence, Hematuria, Vaginal Discharge, Vaginal Bleeding Musculoskeletal: Positive for: Back Pain (radiating from abdomen) Physical Exam - Reviewed Nursing Documentation Reviewed: Yes Vital Signs Reviewed: Yes - Physical Exam Appears: Positive for: No Acute Distress Head Exam: Positive for: ATRAUMATIC, NORMAL INSPECTION, NORMOCEPHALIC Skin: Positive for: Normal Color, Warm, Dry. Negative for: Rash Eye Exam: Positive for: EOMI, Normal appearance, PERRL ENT: Positive for: Normal ENT Inspection Neck: Positive for: Normal, Painless ROM, Supple Cardiovascular/Chest: Positive for: Regular Rate, Rhythm. Negative for: Murmur Respiratory: Positive for: Normal Breath Sounds. Negative for: Wheezing, Respiratory Distress Gastrointestinal/Abdominal: Positive for: Normal Exam, Soft. Negative for: Tenderness Back: Positive for: Normal Inspection. Negative for: L CVA Tenderness, R CVA Tenderness Extremity: Positive for: Normal ROM (x 4). Negative for: Deformity Neurologic/Psych: Positive for: Alert, Oriented (x 3). Negative for: Motor/Sensory Deficits - Laboratory Results Result Diagrams: 12/21/18 17:08 12/21/18 17:08 - ECG O2 Sat by Pulse Oximetry: 99 (RA) Pulse Ox Interpretation: Normal Medical Decision Making Medical Decision Makin:51 MDM: workup for ovarian cyst vs UTI vs other abdominal pathologies Labs including UA Pelvic US Reassess patient. 18:14 Pelvic US FINDINGS: UTERUS: Measures 5.7 x 3.7 x 4.2 cm. Retroverted. ENDOMETRIUM: Measures 8 mm in diameter. CERVIX: No cervical abnormality identified. RIGHT OVARY: Measures 4.1 x 2.0 x 2.4 cm. Blood flow is demonstrated. Follicles. LEFT OVARY: Measures 3.5 x 2.2 x 2.5 cm. Blood flow is demonstrated. Follicles. FREE FLUID: No significant free fluid noted. OTHER FINDINGS: None. IMPRESSION: No acute pelvic pathology identified. 18:34 Labs reviewed and within normal limits. US shows no abnormalities. Patient is to be discharged home. Follow up floor manager in 1-2 weeks. Return parameters discussed. Scribe Attestation: Documented by Jenny Crouch, acting as a scribe for Bridget Caraballo MD Provider Scribe Attestation: All medical record entries made by the Scribe were at my direction and personally dictated by me. I have reviewed the chart and agree that the record accurately reflects my personal performance of the history, physical exam, medical decision making, and the department course for this patient. I have also personally directed, reviewed, and agree with the discharge instructions and disposition. Disposition - Clinical Impression Clinical Impression: Abdominal discomfort, Pelvic pain - Patient ED Disposition Is Patient to be Admitted: No - Disposition [facility] Disposition: Routine/Home Disposition Time: 18:35 Condition: IMPROVED Additional Instructions: Take Tylenol or Motrin for pain. Follow up with floor manager in one to two weeks. Return to the emergency department if symptoms worsen or if new symptoms develop. Instructions: Acute Abdomen (Belly Pain), Adult (DC), Acute Pelvic Pain (DC) Forms: [employer] (Romanian) Print Language: MOROCCAN
[2018-12-21 17:18] LABS: BASO # 0.1 K/uL (0.0-0.2); BASO % 0.7 % (0.0-2.0); EOS # 0.1 K/uL (0.0-0.7); EOS % 1.6 % (0.0-4.0); HEMOGLOBIN 13.1 g/dL (12.0-16.0); LYMPH # 2.8 K/uL (1.0-4.3); LYMPH % 33.2 % (20.0-40.0); MEAN CORPUSCULAR HEMOGLOBIN 29.4 pg (27.0-31.0); MEAN CORPUSCULAR HGB CONC 33.1 g/dL (33.0-37.0); MEAN PLATELET VOLUME 7.8 fl (7.2-11.7); MONO # 0.4 K/uL (0.0-0.8); MONO % 5.3 % (0.0-10.0); NEUT % 59.2 % (50.0-75.0); NRBC % 0.1 % (0.0-0.0); RBC 4.44 Mil/uL (3.80-5.20); RED CELL DISTRIBUTION WIDTH 13.4 % (11.5-14.5); WHITE BLOOD COUNT 8.4 K/uL (4.8-10.8)
[2018-12-21 17:20] LABS: SQUAMOUS EPITHIAL 4 /hpf (0-5); URINE BACTERIA RARE (<OCC); URINE BILIRUBIN NEGATIVE (NEGATIVE); URINE BLOOD NEGATIVE (NEGATIVE); URINE CLARITY SLIGHTY-CLOUDY (Clear); URINE COLOR YELLOW (YELLOW); URINE GLUCOSE (UA) NEG (NEGATIVE); URINE LEUKOCYTE ESTERASE TRACE Leu/uL (Negative); URINE PROTEIN NEGATIVE (NEGATIVE); URINE UROBILINOGEN 0.2-1.0 mg/dL (0.2-1.0)
[2018-12-21 17:25] LABS: BLOOD UREA NITROGEN 13 mg/dl (7-17); CALCIUM 9.6 mg/dL (8.4-10.2); GFR NON-AFRICAN AMERICAN > 60
--- NOTE | 2018-12-21 18:17 | US ---
Date of service: 12/21/2018 HISTORY: r/o torsion vs cysts COMPARISON: Transvaginal pelvic ultrasound performed 05/12/18 TECHNIQUE: Transvaginal pelvic ultrasound FINDINGS: UTERUS: Measures 5.7 x 3.7 x 4.2 cm. Retroverted. ENDOMETRIUM: Measures 8 mm in diameter. CERVIX: No cervical abnormality identified. RIGHT OVARY: Measures 4.1 x 2.0 x 2.4 cm. Blood flow is demonstrated. Follicles. LEFT OVARY: Measures 3.5 x 2.2 x 2.5 cm. Blood flow is demonstrated. Follicles. FREE FLUID: No significant free fluid noted. OTHER FINDINGS: None. IMPRESSION: No acute pelvic pathology identified.
[2018-12-21 18:59] VITALS: BP 102/56; PULSE 69; RESP 17; TEMP 98.3
== END 2018-12-21 18:58 | disposition home or self-care (01) ==
LOC: H.ER 14:25
DX: R10.2 Pelvic and perineal pain (principal)
CPT/HCPCS: 76830; 80048; 81003; 81025; 85025; 96374; 99284; J1885